=== PATIENT | male | born 1990 | race Caucasian/White ===

== ENCOUNTER 2024-01-12 09:45 | Emergency (ER) | payer OTHER, SELFPAY ==
[2024-01-12 09:57] VITALS: BP 128/93; PULSE 70; RESP 16; TEMP 37.1; O2SAT 100; BMI 27.2
--- NOTE | 2024-01-12 10:04 | PC.NURSE ---
left side rib pain, no redness, bruising or swelling to site
[2024-01-12 10:05] VITALS: O2SAT 100
--- NOTE | 2024-01-12 10:23 | ED_ITS ---
HPI - Back Pain/Injury General Chief Complaint: Back Pain/Injury Stated Complaint: L SIDE PAIN/INJURY Time Seen by Provider: 01/12/24 10:22 Source: patient Mode of arrival: walk-in History of Present Illness HPI Narrative: Patient here with an injury to his left ribs. He states he slipped and fell 3 days ago. He states that in the middle of November he also had a fall broke his wrist and cracked the left ninth rib. It was healing up nicely until he fell 3 days ago. Otherwise denies any trauma to the left rib area. He says it hurts to take a deep breath. Related Data Allergies Allergy/AdvReac Type Severity Reaction Status Date / Time bee venom protein (honey bee) Allergy Severe Verified 01/12/24 10:01 Exam Narrative Exam Narrative: Awake alert pleasant moves about cautiously he holds his left ribs. His pulse oximetry is 100% on room air. Examining his back and thoracic area there is no abrasions contusions or obvious evidence of injury. But he is very tender over the left lateral ninth and 10th rib. His lungs however were completely clear with no wheeze rales or rhonchi. There is no subcutaneous emphysema. Trachea is midline there is no other injury to his torso noted. However on his hands he has got abrasions and contusions and he states he was little to also with his friend previously but he says that did not cause his rib injury. He has hardware in his right forearm the incisions healed nicely there is no surrounding erythema. The abrasions to his knuckles do not look like bite wounds and there is no evidence of secondary infection at this time. Constitutional Vital Signs, click to edit/add: Last Vital Signs Temp 98.7 F 01/12/24 09:57 Pulse 70 01/12/24 09:57 Resp 16 01/12/24 09:57 BP 128/93 H 01/12/24 09:57 Pulse Ox 100 01/12/24 10:05 O2 Del Method Room Air 01/12/24 10:05 Course Vital Signs Vital signs: Vital Signs Temperature 98.7 F 01/12/24 09:57 Pulse Rate 70 01/12/24 09:57 Respiratory Rate 16 01/12/24 09:57 Blood Pressure 128/93 H 01/12/24 09:57 Pulse Oximetry 100 01/12/24 09:57 Oxygen Delivery Method Room Air 01/12/24 09:57 Temperature 98.7 F 01/12/24 09:57 Pulse Rate 70 01/12/24 09:57 Respiratory Rate 16 01/12/24 09:57 Blood Pressure 128/93 H 01/12/24 09:57 Pulse Oximetry 100 01/12/24 10:05 Oxygen Delivery Method Room Air 01/12/24 10:05 MDM - Back Pain/Injury MDM Narrative Medical decision making narrative: This patient appears with no new trauma but severe pain in previous area of fracture. His x-rays do not show any pneumothorax or injury to the lung parenchyma. He will be given analgesics for Discharge Plan Discharge Chief Complaint: Back Pain/Injury Clinical Impression: Left rib fracture Patient Disposition: Home, Self-Care Time of Disposition Decision: 11:21 Instructions: Rib Contusion (ED) Additional Instructions: [place] as needed Referrals: Physician,Non-Staff, MD [Primary Care Provider] - 1 week Stand Alone Forms: Portal Instructions
--- NOTE | 2024-01-12 10:28 | XR_ITS ---
The [address] [address] Patient Name: BASILIA ROBERTS MRN: [id number] date: 1990 Sex: M Assigned Patient Location: ER Current Patient Location: ER Accession/Order Number: [id number] Exam Date: 01/12/2024 10:50 Report Date: 01/12/2024 11:12 At the request of: HIRO GREEN Procedure: XR ribs LT min 3V w CXR1V EXAMINATION: XR ribs LT min 3V w CXR1V HISTORY: Trauma COMPARISON: No relevant comparison available. FINDINGS: LUNGS: No significant pulmonary parenchymal abnormalities. PLEURA: No pneumothorax, effusion, or pleural thickening. MEDIASTINUM: No visible mass or adenopathy. CARDIAC: No cardiomegaly or cardiac silhouette abnormality. RIBS: Subacute healing nondisplaced fracture left lateral 10th rib seen best on image 4 with presence of periosteal reaction/callus OTHER: Negative. XR/XR ribs LT min 3V w CXR1V IMPRESSION: Subacute left lateral 10th rib fracture Clear lungs Electronically authenticated by: JEM RIBEIRO Date: 01/12/2024 11:12
== END 2024-01-12 11:45 | disposition home or self-care (01) ==
PROVIDERS: Emergency Provider Emergency Medicine Emergency Medical Services
DX: S22.32XA Fracture of one rib, left side, initial encounter for closed fracture (principal); W01.0XXA Fall on same level from slipping, tripping and stumbling without subsequent striking against object, initial encounter
CPT/HCPCS: 71101; 99283